=== PATIENT | male | born 1995 | race Two or more races ===

== ENCOUNTER 2016-12-05 16:43 | Emergency (ER) | payer BC, MEDICAID ==
[~2016-12-05] VITALS: Ht 172.7 cm; Wt 93.4 kg
[2016-12-05 17:05] VITALS: BP 148/86
== END 2016-12-05 17:27 | disposition home or self-care (01) ==
LOC: ER 16:46
DX: N39.0 Urinary tract infection, site not specified (principal)
CPT/HCPCS: 81002